=== PATIENT | male | born 1995 | race Caucasian/White ===

== ENCOUNTER 2018-01-21 18:37 | Emergency (ER) | payer SELFPAY ==
[~2018-01-21] VITALS: Ht 188 cm; Wt 71.7 kg
[2018-01-21] MEDS ORDERED: ONDANSETRON ODT 4 MG PO ONE (19:00)
[2018-01-21] MEDS ORDERED: LORazepam 1MG TABLET PO ONE (19:00)
[2018-01-21 19:14] LABS: BASOPHILS # (AUTO) 0.03 x10^3/uL (0-0.1); BASOPHILS % (AUTO) 0 % (0-1); EOSINOPHILS # (AUTO) 0.07 x10^3/uL (0-0.4); EOSINOPHILS % (AUTO) 1 % (1-7); LYMPHOCYTES # (AUTO) 1.93 x10^3/uL (1-3.4); LYMPHOCYTES % (AUTO) 25 % (22-44); MD NO; MEAN CORPUSCULAR HEMOGLOBIN 33.9 pg (27.5-34.5); MEAN CORPUSCULAR HGB CONC 34.3 g/dL (33.2-36.2); MEAN CORPUSCULAR VOLUME 98.6 fL (81-97); MEAN PLATELET VOLUME 9.9 fL (7.4-10.4); MONOCYTES # (AUTO) 0.33 x10^3/uL (0.2-0.8); MONOCYTES % (AUTO) 4 % (2-9); NEUTROPHILS # (AUTO) 5.39 x10^3/uL (1.8-6.8); NEUTROPHILS % (AUTO) 70 % (42-75); PLATELET COUNT 150 x10^3/uL (130-400); RED BLOOD COUNT 4.82 x10^6/uL (4.38-5.82); RED CELL DISTRIBUTION WIDTH 13.2 % (9.4-14.8)
[2018-01-21 19:22] LABS: ALBUMIN 4.2 g/dL (3.4-5.0); ANION GAP 8 mmol/L (5-15); CALCIUM 9.2 mg/dL (8.5-10.1); CHLORIDE 104 mmol/L (98-107); CREATININE 1.21 mg/dL (0.7-1.3)
[2018-01-21] MEDS ORDERED: LORazepam 2 MG/ML, 1ML ONE (19:29)
[2018-01-21 19:54] LABS: SALICYLATE LEVEL < 1.7 mg/dL (2.8-20.0)
[2018-01-21 19:55] LABS: ACETAMINOPHEN < 2 mcg/mL (10-30)
[2018-01-21] MEDS ORDERED: LORazepam 2 MG/ML, 1ML IVPush ONE ×2 (20:00)
[2018-01-21] MEDS ORDERED: LORazepam 2 MG/ML, 1ML IM ONE (21:30)
[2018-01-22 00:28] VITALS: BP 110/57
== END 2018-01-22 01:44 | disposition home or self-care (01) ==
LOC: ED 19:25
DX: R56.9 Unspecified convulsions (principal); Z87.891 Personal history of nicotine dependence
CPT/HCPCS: 36415; 70450; 80048; 80307; 80329; 82040; 85025; 93005; 96372; 96374; 99291; J2060; G0480

== ENCOUNTER 2018-01-22 13:49 | Emergency (ER) | payer SELFPAY ==
[~2018-01-22] VITALS: Ht 185.4 cm; Wt 71.4 kg
[2018-01-22 14:06] VITALS: BP 131/81
== END 2018-01-22 15:32 | disposition home or self-care (01) ==
LOC: ED 15:15
DX: M25.561 Pain in right knee (principal); G89.29 Other chronic pain; G40.909 Epilepsy, unspecified, not intractable, without status epilepticus
CPT/HCPCS: 99284

== ENCOUNTER 2018-01-26 12:21 | Inpatient (IN) | payer OTHER ==
[~2018-01-26] VITALS: Ht 188 cm; Wt 68.7 kg
[2018-01-26] MEDS ORDERED: LORazepam 2 MG/ML, 1ML ONE ×3 (12:44→12:54)
[2018-01-26] MEDS ORDERED: SODIUM CHLORIDE 0.9% 1,000ML IVBOLUS ONE (13:00)
[2018-01-26] MEDS ORDERED: LORazepam 2 MG/ML, 1ML IVPush ONE ×3 (13:00→14:00)
[2018-01-26 13:19] LABS: ALANINE AMINOTRANSFERASE 23 U/L (12-78); ALBUMIN 4.2 g/dL (3.4-5.0); ANION GAP 8 mmol/L (5-15); CALCIUM 8.7 mg/dL (8.5-10.1); CHLORIDE 107 mmol/L (98-107); CREATININE 0.99 mg/dL (0.7-1.3)
[2018-01-26 13:20] LABS: BASOPHILS # (AUTO) 0.02 x10^3/uL (0-0.1); BASOPHILS % (AUTO) 0 % (0-1); EOSINOPHILS # (AUTO) 0.11 x10^3/uL (0-0.4); EOSINOPHILS % (AUTO) 2 % (1-7); LYMPHOCYTES # (AUTO) 1.54 x10^3/uL (1-3.4); LYMPHOCYTES % (AUTO) 27 % (22-44); MD NO; MEAN CORPUSCULAR HEMOGLOBIN 33.9 pg (27.5-34.5); MEAN CORPUSCULAR HGB CONC 34.2 g/dL (33.2-36.2); MEAN CORPUSCULAR VOLUME 98.9 fL (81-97); MEAN PLATELET VOLUME 9.8 fL (7.4-10.4); MONOCYTES # (AUTO) 0.36 x10^3/uL (0.2-0.8); MONOCYTES % (AUTO) 6 % (2-9); NEUTROPHILS # (AUTO) 3.64 x10^3/uL (1.8-6.8); NEUTROPHILS % (AUTO) 64 % (42-75); PLATELET COUNT 154 x10^3/uL (130-400); RED BLOOD COUNT 4.53 x10^6/uL (4.38-5.82); RED CELL DISTRIBUTION WIDTH 13.5 % (9.4-14.8)
[2018-01-26 13:22] LABS: ALKALINE PHOSPHATASE 111 U/L (45-117); BILIRUBIN,TOTAL 0.5 mg/dL (0.2-1.0)
[2018-01-26] MEDS ORDERED: PHENYTOIN SODIUM 1,000 MG in SODIUM CHLORIDE 0.9% 100 ML IVPB ONE (13:30)
[2018-01-26] MEDS ORDERED: FILTER 0.22 MICRON FOR PHENYTOIN IV PRN (14:00)
[2018-01-26 15:29] LABS: AMPHETAMINE SCREEN, URINE Negative (Negative); BARBITURATE SCREEN, URINE Negative (Negative); BENZODIAZEPINE SCREEN, URINE Negative (Negative); CANNABINOID SCREEN, URINE Negative (Negative); COCAINE SCREEN, URINE Negative (Negative); METHADONE SCREEN, URINE Negative (Negative); OPIATE SCREEN, URINE Negative (Negative)
[2018-01-26] MEDS ORDERED: ONDANSETRON ODT 4 MG PO PRN (16:30)
[2018-01-26] MEDS ORDERED: DOCUSATE 100 MG CAPSULE PO PRN (16:30)
[2018-01-26 16:38] LABS: THYROID STIMULATING HORMONE 0.708 mIU/L (0.358-3.740)
[2018-01-26 16:43] LABS: FOLATE LEVEL 12.7 ng/mL (3.1-17.5)
[2018-01-26] MEDS ORDERED: GADOBUTROL 7.5 MMOL/7.5 ML PFS ONE (17:17)
[2018-01-26] MEDS: ENOXAPARIN 40 MG/0.4 ML SQ SCH (18:43)
[2018-01-26] MEDS: ACETAMINOPHEN 325 MG TABLET PO PRN (18:43)
[2018-01-26] MEDS: LORazepam 2 MG/ML, 1ML IVPush PRN (19:25)
[2018-01-26] MEDS ORDERED: LORazepam 2 MG/ML, 1ML IVPush PRN (20:00)
[2018-01-26 20:21] VITALS: BP 103/64
[2018-01-26] MEDS ORDERED: LEVETIRACETAM 1,000 MG in SODIUM CHLORIDE 0.9% 100 ML IV ONE (20:30)
[2018-01-27 00:39] VITALS: BP 116/66
[2018-01-27] MEDS ORDERED: ATROPINE SYRINGE 0.1 MG/ML, 10ML ONE (00:48)
[2018-01-27 05:57] LABS: CHLORIDE 110 mmol/L (98-107)
[2018-01-27 06:15] LABS: ALANINE AMINOTRANSFERASE 18 U/L (12-78); ALBUMIN 3.9 g/dL (3.4-5.0); ALKALINE PHOSPHATASE 102 U/L (45-117); ANION GAP 8 mmol/L (5-15); BILIRUBIN,TOTAL 0.7 mg/dL (0.2-1.0); CALCIUM 8.6 mg/dL (8.5-10.1); CREATININE 0.98 mg/dL (0.7-1.3); TOTAL PROTEIN 7.6 g/dL (6.4-8.2)
[2018-01-27 07:05] VITALS: BP 119/73
[2018-01-27] MEDS: LORazepam 2 MG/ML, 1ML IVPush PRN (07:24)
[2018-01-27] MEDS ORDERED: LEVETIRACETAM 1,000 MG in SODIUM CHLORIDE 0.9% 100 ML IV STA (07:37)
[2018-01-27] MEDS ORDERED: PHENYTOIN 100 MG CAPSULE PO SCH (09:00)
[2018-01-27] MEDS ORDERED: LEVETIRACETAM 500 MG TABLET PO SCH (09:00)
[2018-01-27] MEDS: VALPROATE SODIUM 500 MG in DEXTROSE 5% 100 ML IV SCH ×2 (10:01→20:32)
[2018-01-27] MEDS: THIAMINE 100MG TABLET PO SCH (10:01)
[2018-01-27] MEDS: FAMOTIDINE 20 MG TABLET PO SCH ×2 (13:05→20:32)
[2018-01-27 13:36] VITALS: BP 114/69
[2018-01-27] MEDS: ENOXAPARIN 40 MG/0.4 ML SQ SCH (16:32)
[2018-01-27] MEDS: ACETAMINOPHEN 325 MG TABLET PO PRN (17:59)
[2018-01-27 19:26] VITALS: BP 115/72
[2018-01-27] MEDS: maalox/diphenh/lido/sucralfate 5 ML PO PRN (21:41)
[2018-01-28 00:23] VITALS: BP 102/63
[2018-01-28 08:08] VITALS: BP 119/76
[2018-01-28] MEDS: THIAMINE 100MG TABLET PO SCH (08:56)
[2018-01-28] MEDS: VALPROATE SODIUM 500 MG in DEXTROSE 5% 100 ML IV SCH (08:56)
[2018-01-28] MEDS: FAMOTIDINE 20 MG TABLET PO SCH (09:00)
[2018-01-28] MEDS: maalox/diphenh/lido/sucralfate 5 ML PO PRN (10:39)
[2018-01-28] MEDS ORDERED: DIVA500T4 PO (13:02)
[2018-01-28] MEDS ORDERED: ACET325T14 PO (13:02)
[2018-01-28] MEDS ORDERED: THIA100T6 PO (13:02)
[2018-01-28] MEDS ORDERED: FOLI-17 PO (13:02)
[2018-01-28] MEDS ORDERED: FAMO20TA7 PO (13:02)
[2018-01-28] MEDS ORDERED: FLU VACC QS2017-18 (36MOS+) UP/PF 0.5 ML IM-VACC ONE (14:00)
[2018-01-28] MEDS ORDERED: PNEUMOCOCCAL 23 VACCINE IM-VACC ONE (14:00)
[2018-01-28 14:30] VITALS: BP 124/84
[2018-01-29] MEDS ORDERED: DIVALPROEX 500 MG TAB.ER.24H PO SCH (09:00)
== END 2018-01-28 16:05 | disposition home or self-care (01) | DRG 101 ==
LOC: ED 13:34 → EDIP 15:02 → 4EST 17:36
PROVIDERS: ADMIT Hospitalist; ATTEND Hospitalist
DX: G40.89 Other seizures (principal); D75.89 Other specified diseases of blood and blood-forming organs; F10.10 Alcohol abuse, uncomplicated; F12.10 Cannabis abuse, uncomplicated; J02.9 Acute pharyngitis, unspecified; K21.9 Gastro-esophageal reflux disease without esophagitis; Y90.0 Blood alcohol level of less than 20 mg/100 ml; Z91.19 Patient's noncompliance with other medical treatment and regimen; Z88.0 Allergy status to penicillin; Z87.820 Personal history of traumatic brain injury; Z23 Encounter for immunization
CPT/HCPCS: 36415; 70553; 80053; 80164; 80185; 80307; 82607; 82746; 84443; 85025; 87081; 87880; 90732; 93005; 95816; 95819; 96365; 96375; 96376; A9585; J1165; J1650; J1953; J2060; J7030

== ENCOUNTER 2018-01-29 07:51 | Emergency (ER) | payer SELFPAY ==
[~2018-01-29] VITALS: Ht 182.9 cm; Wt 66.0 kg
[~2018-01-29 07:51] MED LIST: ACET325T14 PO; DIVA500T4 PO; FAMO20TA7 PO; FOLI-17 PO; THIA100T6 PO
[2018-01-29 07:57] VITALS: BP 124/79
[2018-01-29] MEDS ORDERED: SODIUM CHLORIDE FLUSH 10ML SYR IVF ONE (08:30)
[2018-01-29 08:38] LABS: BASOPHILS # (AUTO) 0.02 x10^3/uL (0-0.1); BASOPHILS % (AUTO) 0 % (0-1); EOSINOPHILS % (AUTO) 2 % (1-7); LYMPHOCYTES # (AUTO) 0.97 x10^3/uL (1-3.4); LYMPHOCYTES % (AUTO) 20 % (22-44); MD NO; MEAN CORPUSCULAR HEMOGLOBIN 33.5 pg (27.5-34.5); MEAN CORPUSCULAR HGB CONC 33.8 g/dL (33.2-36.2); MEAN CORPUSCULAR VOLUME 99.2 fL (81-97); MEAN PLATELET VOLUME 9.3 fL (7.4-10.4); MONOCYTES # (AUTO) 0.37 x10^3/uL (0.2-0.8); MONOCYTES % (AUTO) 7 % (2-9); NEUTROPHILS % (AUTO) 71 % (42-75); PLATELET COUNT 158 x10^3/uL (130-400); RED BLOOD COUNT 4.63 x10^6/uL (4.38-5.82); RED CELL DISTRIBUTION WIDTH 14.1 % (9.4-14.8)
[2018-01-29 08:46] LABS: ALBUMIN 3.8 g/dL (3.4-5.0); ANION GAP 9 mmol/L (5-15); CALCIUM 8.7 mg/dL (8.5-10.1); CHLORIDE 106 mmol/L (98-107); CREATININE 0.82 mg/dL (0.7-1.3)
== END 2018-01-29 09:17 | disposition home or self-care (01) ==
LOC: ED 07:55
DX: R56.9 Unspecified convulsions (principal)
CPT/HCPCS: 36415; 80048; 80164; 80307; 82040; 85025; 99284